=== PATIENT | female | born 1935 | race Caucasian/White ===

== ENCOUNTER 2018-11-16 08:03 | Emergency (ER) | payer OTHER ==
[2018-11-16 09:49] LABS: Absolute Lymphocytes (CBC) 1.8 K/uL (0.7-4.9); Absolute Monocytes 0.4 K/uL (0.1-1.3); Absolute Neutrophil 3.3 K/uL (1.8-8.0); Basophils % 0.2 % (0-1.3); Eosinophils % 2.4 % (0-4.4); Hematocrit 36.4 % (36.0-45.0); Lymphocytes % 31.9 % (15.3-44.8); MPV 8.4 fL (7.6-11.3); Monocytes % 7.6 % (3.3-12.3); RBC Red Blood Cell Count 4.02 M/uL (3.86-4.86)
[2018-11-16 09:55] LABS: Potassium 3.8 mmol/L (3.5-5.1)
[2018-11-16] MEDS ORDERED: ACETAMINOPHEN 325 MG TABLET ONE (10:22)
--- NOTE | 2018-11-16 10:53 | RAD REPORT ---
EXAM DESCRIPTION: USExtrem Venous W Compress Bil11/16/2018 10:42 am CLINICAL HISTORY: Bilateral leg pain COMPARISON: none FINDINGS: The common femoral, superficial femoral, popliteal and posterior tibial veins bilaterally are compressible and demonstrate augmentation. Doppler demonstrates good flow. 6 x 2 x 3 centimeter right Hadley's cyst. 6 x 2 x 3 centimeter left Hadley's cyst IMPRESSION: No evidence of deep venous thrombosis involving either lower extremity. Bilateral Hadley's cysts
--- NOTE | 2018-11-16 11:02 | EDPHYS ---
Physician Documentation [facility] Name: Geneva Matt Age: 82 yrs Sex: Female : 1935 Arrival Date: 11/16/2018 Time: 08:08 Bed 6 Private MD: ED Physician Williams Beck HPI: 11/16 10:56 This 82 yrs old Female presents to ER via Ambulatory with complaints of Leg gs Swelling. 10:56 The patient presents with swelling. The complaints affect the left king. Onset: The gs symptoms/episode began/occurred 1 month(s) ago, and became persistent. Modifying factors: The symptoms are alleviated by nothing. the symptoms are aggravated by nothing. Associated signs and symptoms: Pertinent negatives fever, numbness. Severity of symptoms: At their worst the symptoms were severe, in the emergency department the symptoms are unchanged. The patient has experienced similar episodes in the past, a few times. Historical: - Allergies: 08:28 No Known Allergies; iw - Home Meds: 08:28 atorvastatin 20 mg oral tab 1 tab once daily [Active]; furosemide 20 mg Oral tab 1 tab iw once daily [Active]; levothyroxine 75 mcg tab 1 tab once daily [Active]; losartan 100 mg oral tab 1 tab once daily [Active]; metoprolol succinate 50 mg oral Tb24 1 tab twice a day [Active]; multivitamin oral cap daily [Active]; oxybutynin chloride 5 mg Oral tab 1 tab daily [Active]; triamcinolone acetonide 0.1 % Topical crea nightly [Active]; - PMHx: 08:28 Hyperlipidemia; Hypertension; Hypothyroidism; iw - PSHx: 08:28 Hysterectomy; nilda hip; iw - Immunization history:: Adult Immunizations not up to date. - Social history:: Smoking status: Patient/guardian denies using tobacco, the patient reports quitting approximately 45 years ago. - Ebola Screening: : Patient negative for fever greater than or equal to 101.5 degrees Fahrenheit, and additional compatible Ebola Virus Disease symptoms Patient denies exposure to infectious person Patient denies travel to an Ebola-affected area in the 21 days before illness onset No symptoms or risks identified at this time. ROS: 10:56 All other systems are negative. gs Exam: 10:56 Eyes: Pupils equal round and reactive to light, extra-ocular motions intact. Lids and gs lashes normal. Conjunctiva and sclera are non-icteric and not injected. Cornea within normal limits. Periorbital areas with no swelling, redness, or edema. ENT: Nares patent. No nasal discharge, no septal abnormalities noted. Tympanic membranes are normal and external auditory canals are clear. Oropharynx with no redness, swelling, or masses, exudates, or evidence of obstruction, uvula midline. Mucous membranes moist. Neck: Trachea midline, no thyromegaly or masses palpated, and no cervical lymphadenopathy. Supple, full range of motion without nuchal rigidity, or vertebral point tenderness. No Meningismus. Chest/axilla: Normal chest wall appearance and motion. Nontender with no deformity. No lesions are appreciated. Cardiovascular: Regular rate and rhythm with a normal S1 and S2. No gallops, murmurs, or rubs. Normal PMI, no JVD. No pulse deficits. Respiratory: Lungs have equal breath sounds bilaterally, clear to auscultation and percussion. No rales, rhonchi or wheezes noted. No increased work of breathing, no retractions or nasal flaring. Abdomen/GI: Soft, non-tender, with normal bowel sounds. No distension or tympany. No guarding or rebound. No evidence of tenderness throughout. 10:56 Constitutional: The patient appears alert, awake. 10:56 Musculoskeletal/extremity: Circulation is intact in all extremities. Edema, 3+ to the right midcalf and right ankle is noted, 4+ to the left midcalf and left ankle is noted. 10:56 Skin: cellulitis, is not appreciated. Vital Signs: 08:28 BP 173 / 84; Pulse 84; Resp 18 S; Temp 97.9(TE); Pulse Ox 97% on R/A; Pain 0/10; iw MDM: 08:35 Patient medically screened. gs 10:56 Differential diagnosis: edema,venous congestion,dvt. Data reviewed: vital signs, nurses gs notes, lab test result(s), radiologic studies. Counseling: I had a detailed discussion with the patient and/or guardian regarding: the historical points, exam findings, and any diagnostic results supporting the discharge/admit diagnosis, lab results, radiology results, the need for outpatient follow up. Response to treatment: the patient's symptoms have mildly improved after treatment. 11/16 08:35 Order name: CBC with Diff; Complete Time: 10:56 11/16 08:35 Order name: Basic Metabolic Panel; Complete Time: 10:56 11/16 08:35 Order name: D-Dimer; Complete Time: 10:56 11/16 09:55 Order name: US Extremity Venous W Compression Nilda; Complete Time: 10:56 Administered Medications: 10:08 Drug: Tylenol 650 mg Route: PO; sg Disposition: 11/16/18 11:01 Discharged to Home. Impression: Edema, not elsewhere classified. - Condition is Stable. - Discharge Instructions: Peripheral Edema. - Medication Reconciliation Form, Thank You Letter, Antibiotic Education, Prescription Opioid Use form. - Follow up: Private Physician; When: 1 - 2 days; Reason: Re-evaluation by your physician. - Notes: restart lasix see pcp next available appt. Signatures: Dispatcher [employer] EDRigo Alcala RN RN sg Williams, Irene, RN RN iw Williams Beck MD MD Corrections: (The following items were deleted from the chart) 11:32 11:01 11/16/2018 11:01 Discharged to Home. Impression: Edema, not elsewhere classified. sg Condition is Stable. Forms are Medication Reconciliation Form, Thank You Letter, Antibiotic Education, Prescription Opioid Use. Follow up: Private Physician; When: 1 - 2 days; Reason: Re-evaluation by your physician.
--- NOTE | 2018-11-16 11:02 | ER ---
Nurse's Notes [facility] Name: Geneva Matt Age: 82 yrs Sex: Female : 1935 Arrival Date: 11/16/2018 Time: 08:08 Bed 6 Private MD: Diagnosis: Edema, not elsewhere classified Presentation: 11/16 08:23 Presenting complaint: Child states: increased swelling to left leg X 1 month, also has iw some redness and warmth to leg, denies chest pain, SOB, denies pain to leg at this time. Transition of care: patient was not received from another setting of care. Onset of symptoms was October 15, 2018. Risk Assessment: Do you want to hurt yourself or someone else? Patient reports no desire to harm self or others. Initial Sepsis Screen: Does the patient meet any 2 criteria? No. Patient's initial sepsis screen is negative. Does the patient have a suspected source of infection? No. Patient's initial sepsis screen is negative. Care prior to arrival: None. 08:23 Method Of Arrival: Ambulatory iw 08:23 Acuity: DYAN 3 iw Historical: - Allergies: 08:28 No Known Allergies; iw - Home Meds: 08:28 atorvastatin 20 mg oral tab 1 tab once daily [Active]; furosemide 20 mg Oral tab 1 tab iw once daily [Active]; levothyroxine 75 mcg tab 1 tab once daily [Active]; losartan 100 mg oral tab 1 tab once daily [Active]; metoprolol succinate 50 mg oral Tb24 1 tab twice a day [Active]; multivitamin oral cap daily [Active]; oxybutynin chloride 5 mg Oral tab 1 tab daily [Active]; triamcinolone acetonide 0.1 % Topical crea nightly [Active]; - PMHx: 08:28 Hyperlipidemia; Hypertension; Hypothyroidism; iw - PSHx: 08:28 Hysterectomy; nilda hip; iw - Immunization history:: Adult Immunizations not up to date. - Social history:: Smoking status: Patient/guardian denies using tobacco, the patient reports quitting approximately 45 years ago. - Ebola Screening: : Patient negative for fever greater than or equal to 101.5 degrees Fahrenheit, and additional compatible Ebola Virus Disease symptoms Patient denies exposure to infectious person Patient denies travel to an Ebola-affected area in the 21 days before illness onset No symptoms or risks identified at this time. Screenin:30 Abuse screen: Denies threats or abuse. Denies injuries from another. Nutritional sg screening: No deficits noted. Tuberculosis screening: No symptoms or risk factors identified. Never had TB. Fall Risk None identified. Assessment: 09:00 General: Appears in no apparent distress. well groomed, well developed, well nourished, sg Behavior is calm, cooperative, appropriate for age. Pain: Complains of pain in right leg and left leg Quality of pain is described as aching, tender, throbbing. Neuro: Level of Consciousness is awake, alert, obeys commands, Oriented to person, place, time, Leasing Sales Consultant are equal bilaterally Gait is steady, with a walker. Speech is normal, Facial symmetry appears normal. Cardiovascular: Capillary refill is sluggish in bilateral fingers toes Patient's skin is warm and dry. Chest pain is denied. Cardiovascular: Edema is 2+ to left ankle, left foot, left toes, right ankle, right foot and right toes. Respiratory: Airway is patent Respiratory effort is even, unlabored, Respiratory pattern is regular, symmetrical. GI: Abdomen is round non-distended. : No signs and/or symptoms were reported regarding the genitourinary system. EENT: No signs and/or symptoms were reported regarding the EENT system. Derm: Skin is pink, warm \T\ dry. Musculoskeletal: Circulation, motion, and sensation intact. Range of motion: intact in all extremities. Vital Signs: 08:28 BP 173 / 84; Pulse 84; Resp 18 S; Temp 97.9(TE); Pulse Ox 97% on R/A; Pain 0/10; iw ED Course: 08:08 Patient arrived in ED. mr 08:13 Williams Beck MD is Attending Physician. gs 08:25 Triage completed. iw 08:29 Arm band placed on. iw 09:30 Initial lab(s) drawn, by me, sent to lab. Inserted saline lock: 20 gauge in right sg antecubital area, using aseptic technique. Blood collected. 09:53 Rigo Monge, JUDITH is Primary Nurse. sg 10:42 US Extremity Venous W Compression Nilda In Process Unspecified. EDMS Administered Medications: 10:08 Drug: Tylenol 650 mg Route: PO; sg Outcome: 11:01 Discharge ordered by . gs 11:32 Patient left the ED. sg Signatures: Dispatcher [employer] EDMS Rigo Monge RN RN sg Rivera, Sandee Atkinson RN RN iw Starr, Gregory, MD MD gs
== END 2018-11-16 11:32 | disposition home or self-care (01) ==
LOC: ER 08:03
DX: R60.9 Edema, unspecified (principal); I10 Essential (primary) hypertension; E78.5 Hyperlipidemia, unspecified; E03.9 Hypothyroidism, unspecified
CPT/HCPCS: 36415; 80048; 85025; 85379; 93970; 99284